=== PATIENT | female | born 1940 | race Caucasian/White ===

== ENCOUNTER 2016-09-08 11:48 | Inpatient (IN) | payer MEDICARE, OTHER ==
[2016-09-01 17:20] LABS: HEMATOCRIT 48.9 % (36.0-48.0); HEMOGLOBIN 16.6 g/dL (12.0-16.0)
[2016-09-01 17:33] LABS: BUN (BLOOD UREA NITROGEN) 13 MG/DL (6-23); CALCIUM, SERUM 8.7 MG/DL (8.5-10.4); CREATININE 0.94 MG/DL (0.55-1.02); GFR AFRICAN AMERICAN 69 ML/MIN (>=60); GFR NON AFRICAN AMERICAN 60 ML/MIN (>=60); GLUCOSE, SERUM 104 MG/DL (60-99); SODIUM, SERUM 136 MMOL/L (135-148)
[2016-09-01 17:38] LABS: CHLORIDE, SERUM 93 MMOL/L (96-112); CO2 (CARBON DIOXIDE) 31 MMOL/L (24-34)
--- NOTE | ~2016-09-08 | PREOPHP ---
PreOp History and Physical [facility] [address] [place]. [address] NAME: BETTY SHELTON : 42 STATUS : ADM IN PAT#: [id number] AGE: 76 ADM/REG DATE : 09/08/16 MR#: [id number] REPORT SERV DATE: 09/08/16 DICTATED BY: LENARD CEBALLOS DATE: 09/08/16 REPORT STATUS : Draft TRANSCRIBED BY: MODRohan DATE: 09/08/16 CHIEF COMPLAINT: Back pain and left hip and leg pain. HISTORY OF PRESENT ILLNESS: A 76-year-old female with prolonged back pain, left hip and leg pain, and has a diagnosis of grade 1 spondylolisthesis at L4-5. There is some spinal stenosis as well. She has predominantly left leg pain and back pain. She has tried usual conservative care for several months and has failed. Due to the above diagnosis and further conservative care, she was brought to the surgery for a left L4-5 hemilaminectomy foraminotomy, facetectomy, transforaminal diskectomy, anterior interbody cage insertion, posterolateral interbody fusion with local bone graft and allograft, and posterior percutaneous instrumentation. Prior to surgery, risks, benefits, alternatives, and expectations explained. Consent form has been signed. Please also note because of the complexity of surgery and the need to identify the correct level of surgery intraoperatively as well as the desire to carry out the safest and most precise dissection with least amount of radiation exposure, I felt that intraoperative navigation is mandatory. PAST MEDICAL HISTORY: Has included anxiety disorder, osteoarthritis, breast cancer, hypertension, hypercholesterolemia, hypothyroidism, recurrent UTIs, and chronic nephritis. She has also had sleep apnea. PAST SURGICAL HISTORY: Includes abdominal hysterectomy, right-sided mastectomy, cystectomy of the right hand, tonsillectomy, adenoidectomy, and cataract excision with bilateral lens implants. CURRENT MEDICATIONS: Dilaudid 2 mg q.6h. p.r.n. for pain; Synthroid; Ativan; lovastatin; and Diovan. ALLERGIES: CODEINE, PENICILLIN, SULFA, AND TRAMADOL. SOCIAL HISTORY: She is , . Does not use any tobacco or alcohol. FAMILY HISTORY: Father had hypertension and coronary artery disease and mother had renal failure and Alzheimer's disease. REVIEW OF SYSTEMS: Otherwise negative. PHYSICAL EXAMINATION: VITAL SIGNS: She is 4 feet 11 inches, 172 pounds, BMI is 34.7. GENERAL: She is alert, cooperative, well oriented. Ambulates independently. HEENT: Exam is grossly normal. LUNGS: Clear to auscultation. HEART: Rate is regular and rhythmic. ABDOMEN: Soft with good bowel sounds. No peritoneal signs noted. MUSCULOSKELETAL: The spine itself has no gross deformities. She has very limited range of PreOp History and Physical [address] [address] NAME: BETTY SHELTON : 42 STATUS : ADM IN PAT#: [id number] AGE: 76 ADM/REG DATE : 09/08/16 MR#: [id number] REPORT SERV DATE: 09/08/16 DICTATED BY: LENARD CEBALLOS DATE: 09/08/16 REPORT STATUS : Draft TRANSCRIBED BY: KAREN DATE: 09/08/16 motion due to pain. She has worse pain with extension versus flexion. She cannot heel walk or toe walk due to pain in the back. Straight leg raising signs passively are negative. Her motor strengths are 5/5. Her patellar reflexes 1/4. Achilles reflexes are absent. There is no sensory deficit in either lower extremities. There is no ankle clonus. Babinski sign is normal. No evidence of myelopathy found. Orthopedically, she has no pain with moving hips, knees, or ankles. There are good pulses in all four extremities. No abnormal skin lesions are found. ASSESSMENT AND RECOMMENDATIONS: As listed above. /EMILYL Lenard Ceballos D.O. / [id number] CC: Ai Lofton Jr., M.D.
--- NOTE | ~2016-09-08 | OP ---
Record Of Operation [facility] [address] [place]. [address] NAME: BETTY SHELTON : 42 STATUS : ADM IN PAT#: [id number] AGE: 76 ADM/REG DATE : 09/08/16 MR#: [id number] REPORT SERV DATE: 09/08/16 DICTATED BY: LENARD CEBALLOS DATE: 09/08/16 REPORT STATUS : Draft TRANSCRIBED BY: MODL DATE: 09/08/16 DATE OF PROCEDURE: PREOPERATIVE DIAGNOSIS: Grade 1/grade 2 spondylolisthesis with spinal stenosis L4-5. POSTOPERATIVE DIAGNOSIS: Grade 1/grade 2 spondylolisthesis with spinal stenosis L4-5. PROCEDURE: 1. Microscopic and navigation assisted surgery. 2. Left L4-5 hemilaminectomy, foraminotomy, facetectomy, transforaminal diskectomy, anterior interbody Capstone cage insertion, Posterolateral interbody fusion with local bone graft allograft. 3. Posterior percutaneous Voyager instrumentation, L4-5. SURGEON: Lenard Ceballos D.O. AUDIO OPERATOR: Amy Barroso. ANESTHESIA: General. ESTIMATED BLOOD LOSS: 75 mL. INDICATION FOR SURGERY: Risks were explained. They are listed in last office note as well in history and physical. See that for detail. OPERATION: Antibiotic prophylaxis given. Neurophysiology monitoring leads inserted. The patient was brought to the operative suite where general anesthetic including endotracheal intubation was administered. Mancilla catheter was placed with sterile technique. The patient was placed prone on a Serafin spine frame. Bony prominences were carefully padded. Thoracolumbar spine was scrubbed with Hibiclens solution. DuraPrep was painted. Sterile drapes applied. A small stab wound was carried out a right posterior superior iliac spine. A percutaneous pin with navigational frame attached was inserted in PSIS. Intraoperative CT scan with O- arm obtained. CT information was used to register the navigational system. With navigational assistance, I identified the L4-5 level. On the left side, just lateral to the facet joint, a 3 cm skin incision was carried out. A blunt navigated probe was placed through the fascia muscle and docked over the facet joint. Muscle dilators were inserted followed by placement of a tubular retractor attached to an arm mount on table. The microscope was sterilely draped and used throughout the remainder of the procedure. With navigational assistance, I identified the top of the pedicle of L5 and the inferior pedicle of L4. I dissected from lateral to medial using 2 mm and 3 mm rahul bur as well as a cutting bur, and 2 mm and 3 mm Kerrison rongeurs. I removed the superior articular process down to the top of the pedicle of L5. The pars interarticularis, the lamina, and Record Of Operation [facility] [address] [place]. [address] NAME: BETTY SHELTON : 42 STATUS : ADM IN PAT#: [id number] AGE: 76 ADM/REG DATE : 09/08/16 MR#: [id number] REPORT SERV DATE: 09/08/16 DICTATED BY: LENARD CEBALLOS DATE: 09/08/16 REPORT STATUS : Draft TRANSCRIBED BY: KAREN DATE: 09/08/16 the inferior articular process of L4 completely removed. The local bone graft was morcellized and used as a part of the fusion. The medial portion of facet joint debrided with rongeur as it was causing lateral recess stenosis. There was severe ligamentum flavum hypertrophy causing central canal and lateral recess stenosis. The exiting L4 nerve root was markedly compressed by disk material behind the body of L4 that had rolled out as a part of the spondylolisthesis. A transforaminal diskectomy was carried out with curettes, rongeurs, and disk sergey, completely decompressing the exiting L4 nerve root. Even the central canal on the right side as well as the lateral recess in right side were debrided through unilateral incision, bilateral decompression was completed with the rongeurs and rahul burs. After the transforaminal diskectomy was completed, the wound was irrigated, the endplate cartilage was completely removed. The trial was carried out. We determined the appropriate size cage would be a 10 x 28 mm cage. The interbody space was filled with local bone graft and allograft. The cage was then inserted through the middle of the graft into the midline against the anterior longitudinal ligament. Additional posterolateral interbody fusion grafting material was inserted. The retractor was removed on the left side. I carried out a 3 cm skin incision on the right side to match that on the left. Again, a blunt navigated probe placed through the fascia and muscle and a percutaneous Voyager pedicle tap and screw motor tune up specialist were used to tap the pedicles of L4 and L5, left and right side. The polyaxial Voyager screws with screw extenders were inserted at L4-5 bilateral. A 35 mm contoured lordotic dumbbell stacy was placed through the screw extenders, reduced into the tulip of the pedicle screw. The set screws inserted and tightened with a torque wrench providing rigid stability. The screw extenders were removed. Intraoperative CT scan with O-arm repeated showing excellent position of all implants. The fascial layer closed with interrupted #1 Vicryl suture. The subcutaneous tissue closed with 2-0 Vicryl suture, 2-0 vertical mattress nylon suture used for skin closure. Sterile dressings were applied. The patient returned to supine position, awakened, extubated, taken to recovery room in satisfactory condition having tolerated procedure well. Sponge, needle, and instrument counts were correct. No intraoperative complications noted. PALOMO/KAREN Lenard Ceballos D.O. / [id number] CC: Lenard Ceballos D.O.
--- NOTE | ~2016-09-08 | DS ---
Discharge Summary [facility] [address] [place]. [address] NAME: BETTY SHELTON : 44 STATUS : DIS IN PAT#: [id number] AGE: 76 ADM/REG DATE : 09/08/16 MR#: [id number] REPORT SERV DATE: 09/20/16 DICTATED BY: LENARD CEBALLOS DATE: 09/19/16 REPORT STATUS : Draft TRANSCRIBED BY: MODRohan DATE: 09/19/16 Data Collection from hospitalization DISCHARGE DIAGNOSES: 1. Grade 1/grade 2 spondylolisthesis with spinal stenosis L4-L5. 2. Hypertension. 3. Sleep apnea. 4. Anxiety disorder. 5. Osteoarthritis. 6. History of breast cancer. 7. Hypercholesterolemia. 8. Hypothyroidism. 9. Chronic nephritis. CONSULTATIONS: None. PROCEDURES PERFORMED: Microscopic and navigation-assisted surgery; left L4-L5 hemilaminectomy, foraminotomy, facetectomy, transforaminal diskectomy, anterior interbody Capstone cage insertion, posterolateral interbody fusion with local bone graft allograft, posterior percutaneous Voyager instrumentation at L4-L5 on 09/08/2016. PATHOLOGY: Bone and tissue, lumbar spine - fragments of hyaline cartilage with degenerative changes. Dense fibrous connective tissue, skeletal muscle, and bone present. MEDICATIONS: Dramamine 50 mg every six hours as needed, Dilaudid 2 mg every six hours as needed, levothyroxine 88 mcg daily, Ativan 0.5 mg at bedtime, Robaxin 500 mg every eight hours, Mirapex 0.125 mg three times a day, Phenergan 25 mg every six hours as needed, Crestor 40 mg daily, and valsartan/hydrochlorothiazide one tablet every morning as instructed. CONDITION AT DISCHARGE: Stable. DISPOSITION: The patient was discharged home on a regular diet with activities as instructed. She would follow up with Christiana Hernandez on 09/22/2016. HOSPITAL COURSE: This is a 76-year-old female with prolonged back pain, left hip and leg pain. She has a diagnosis of grade 1 spondylolisthesis at L4-5. There was some spinal stenosis as well. She has predominantly left leg pain and back pain. She had tried usual conservative care for several months and has failed. Treatment options were discussed and it was elected to proceed with surgical intervention. She was admitted to the hospital for further evaluation and treatment. Upon admission, she was taken to the operating room where she underwent the above-mentioned procedure. She tolerated this well, and there were no complications. On postop day #1, she was doing well. She had no complaints of left leg pain. On postop day #2, she did complain of some nausea and pain. She had some vomiting. She was not participating with Physical Therapy due to the nausea. Her left leg pain had resolved. NAILA hose were in place. Mirapex was continued. Her blood pressure was controlled. On 09/11/2016, she was doing Discharge Summary [place] [id number] [facility] [place]. [address] NAME: BETTY SHELTON : 42 STATUS : DIS IN PAT#: [id number] AGE: 76 ADM/REG DATE : 09/08/16 MR#: [id number] REPORT SERV DATE: 09/20/16 DICTATED BY: LENARD CEBALLOS DATE: 09/19/16 REPORT STATUS : Draft TRANSCRIBED BY: KAREN DATE: 09/19/16 okay except for the nausea and vomiting. Over the next couple of days, she continued to progress. She could not transfer independently. She was requesting one more day of physical therapy. Discharge planning was performed. On 09/13/2016, she was transferring okay. She did have a bowel movement. Discharge instructions were given. Due to her improved and stable condition, she was discharged home with the above-stated instructions. Information collected by: Bronwyn Cervantes I submit the above information as my discharge summary. TREY/KAREN Lenard Ceballos D.O. / [id number] CC: Ai Lofton Jr., M.D.
[~2016-09-08 11:48] MED LIST: ALLEGRA180 PO; ATV.5 PO; CRESTOR20 MG PO; CRESTOR40 MG PO; DIL2TAB PO; DIMENHY50I PO; EXFORGE1 TAB PO; LEVOTHYROXIN100 MCG PO; LEVOTHYROXIN88 MCG PO; MIRAPEX125 PO; TYLENOL ARTH650 MG PO; VALSARTAN/HCTZ PO
[2016-09-08 19:05] LABS: BASOPHILS 0.2 %; BASOPHILS ABSOLUTE 0.02 10/3/uL (0.0-0.16); EOSINOPHILS 0.1 %; EOSINOPHILS ABSOLUTE 0.01 10/3/uL (0.0-0.53); HEMOGLOBIN 13.7 g/dL (12.0-16.0); IMMATURE GRANULOCYTES 0.6 %; IMMATURE GRANULOCYTES ABSOLUTE 0.05 10/3/uL (0.0-0.11); LYMPHOCYTES 7.4 %; LYMPHOCYTES ABSOLUTE 0.62 10/3/uL (0.67-4.30); MEAN CORPUS HGB CONC 33.6 g/dL (32.0-36.0); MEAN CORPUSCULAR HEMOGLOB 28.2 pg (26.0-34.0); MONOCYTES 1.9 %; MONOCYTES ABSOLUTE 0.16 10/3/uL (0.21-1.20); NEUTROPHILS 89.8 %; NEUTROPHILS ABSOLUTE 7.48 10/3/uL (2.02-8.40); PLATELET COUNT 232 10/3/uL (150-400); RBC DISTRIBUTION WIDTH 13.8 % (12.0-16.0); RED CELL COUNT 4.86 10/6/uL (4.0-5.6); WHITE BLOOD CELLS 8.3 10/3/uL (4.5-10.5)
[2016-09-08 19:06] LABS: HEMATOCRIT 40.8 % (36.0-48.0); MANUAL DIFF NO %
[2016-09-08 19:15] LABS: BUN (BLOOD UREA NITROGEN) 10 MG/DL (6-23); CHLORIDE, SERUM 103 MMOL/L (96-112); CO2 (CARBON DIOXIDE) 27 MMOL/L (24-34); GFR AFRICAN AMERICAN 73 ML/MIN (>=60); GFR NON AFRICAN AMERICAN 63 ML/MIN (>=60); GLUCOSE, SERUM 145 MG/DL (60-99); POTASSIUM, SERUM 3.5 MMOL/L (3.5-5.3); SODIUM, SERUM 139 MMOL/L (135-148)
[2016-09-09 04:59] LABS: BASOPHILS 0.1 %; BASOPHILS ABSOLUTE 0.01 10/3/uL (0.0-0.16); EOSINOPHILS 0 %; HEMATOCRIT 42.7 % (36.0-48.0); HEMOGLOBIN 14.4 g/dL (12.0-16.0); IMMATURE GRANULOCYTES 0.2 %; IMMATURE GRANULOCYTES ABSOLUTE 0.03 10/3/uL (0.0-0.11); LYMPHOCYTES 6.8 %; LYMPHOCYTES ABSOLUTE 0.88 10/3/uL (0.67-4.30); MEAN CORPUS HGB CONC 33.7 g/dL (32.0-36.0); MEAN CORPUSCULAR HEMOGLOB 28.5 pg (26.0-34.0); MEAN CORPUSCULAR VOLUME 84.6 fL (80-100); MEAN PLATELET VOLUME 10.5 fL (9.2-13.0); MONOCYTES 4.8 %; MONOCYTES ABSOLUTE 0.63 10/3/uL (0.21-1.20); NEUTROPHILS 88.1 %; NEUTROPHILS ABSOLUTE 11.45 10/3/uL (2.02-8.40); PLATELET COUNT 211 10/3/uL (150-400); RBC DISTRIBUTION WIDTH 13.8 % (12.0-16.0); RED CELL COUNT 5.05 10/6/uL (4.0-5.6)
[2016-09-09 05:01] LABS: MANUAL DIFF NO %
[2016-09-09 05:21] LABS: BUN (BLOOD UREA NITROGEN) 13 MG/DL (6-23); CALCIUM, SERUM 9.2 MG/DL (8.5-10.4); CHLORIDE, SERUM 113 MMOL/L (96-112); CO2 (CARBON DIOXIDE) 17 MMOL/L (24-34); CREATININE 0.84 MG/DL (0.55-1.02); GFR AFRICAN AMERICAN 79 ML/MIN (>=60); GFR NON AFRICAN AMERICAN 68 ML/MIN (>=60); GLUCOSE, SERUM 92 MG/DL (60-99); SODIUM, SERUM 143 MMOL/L (135-148)
[2016-09-09 05:22] LABS: POTASSIUM, SERUM 5.5 MMOL/L (3.5-5.3)
[2016-09-10 05:07] LABS: HEMATOCRIT 42.3 % (36.0-48.0); HEMOGLOBIN 14.1 g/dL (12.0-16.0)
[2016-09-10 05:20] LABS: BUN (BLOOD UREA NITROGEN) 10 MG/DL (6-23); CALCIUM, SERUM 8.6 MG/DL (8.5-10.4); CREATININE 0.72 MG/DL (0.55-1.02); GFR AFRICAN AMERICAN 96 ML/MIN (>=60); GFR NON AFRICAN AMERICAN 83 ML/MIN (>=60); SODIUM, SERUM 140 MMOL/L (135-148)
[2016-09-10 05:21] LABS: CHLORIDE, SERUM 99 MMOL/L (96-112); CO2 (CARBON DIOXIDE) 30 MMOL/L (24-34); GLUCOSE, SERUM 123 MG/DL (60-99); POTASSIUM, SERUM 3.6 MMOL/L (3.5-5.3)
[2016-09-11 04:52] LABS: BASOPHILS 0.2 %; BASOPHILS ABSOLUTE 0.02 10/3/uL (0.0-0.16); EOSINOPHILS 0.5 %; EOSINOPHILS ABSOLUTE 0.05 10/3/uL (0.0-0.53); HEMATOCRIT 41.2 % (36.0-48.0); HEMOGLOBIN 13.8 g/dL (12.0-16.0); IMMATURE GRANULOCYTES 0.1 %; IMMATURE GRANULOCYTES ABSOLUTE 0.01 10/3/uL (0.0-0.11); LYMPHOCYTES 19.8 %; LYMPHOCYTES ABSOLUTE 2.06 10/3/uL (0.67-4.30); MEAN CORPUS HGB CONC 33.5 g/dL (32.0-36.0); MEAN CORPUSCULAR HEMOGLOB 28.5 pg (26.0-34.0); MEAN CORPUSCULAR VOLUME 85.1 fL (80-100); MEAN PLATELET VOLUME 10.3 fL (9.2-13.0); MONOCYTES 10.2 %; MONOCYTES ABSOLUTE 1.06 10/3/uL (0.21-1.20); NEUTROPHILS 69.2 %; NEUTROPHILS ABSOLUTE 7.22 10/3/uL (2.02-8.40); PLATELET COUNT 234 10/3/uL (150-400); RBC DISTRIBUTION WIDTH 14.2 % (12.0-16.0); RED CELL COUNT 4.84 10/6/uL (4.0-5.6); WHITE BLOOD CELLS 10.4 10/3/uL (4.5-10.5)
[2016-09-11 04:53] LABS: MANUAL DIFF NO %
[2016-09-13] MEDS ORDERED: DIL2TAB PO (09:40)
[2016-09-13] MEDS ORDERED: METHOC500B PO (09:40)
[2016-09-13] MEDS ORDERED: PR25 PO (09:41)
== END 2016-09-13 14:34 | disposition home or self-care (01) | DRG 460 ==
LOC: SDC/OF 11:48 → 3SO 20:46
PROVIDERS: Nurse Practitioner; Orthopaedic Surgery Orthopaedic Surgery of the Spine
PROC: 0SG00AJ Fusion of Lumbar Vertebral Joint with Interbody Fusion Device, Posterior Approach, Anterior Column, Open Approach (ICD-10-PCS; principal; 2016-09-08 13:45)
PROC: 0ST20ZZ Resection of Lumbar Vertebral Disc, Open Approach (ICD-10-PCS; 2016-09-08 13:45)
PROC: 4A11X4G Monitoring of Peripheral Nervous Electrical Activity, Intraoperative, External Approach (ICD-10-PCS; 2016-09-08 13:45)
DX: M51.36 Other intervertebral disc degeneration, lumbar region (principal); I10 Essential (primary) hypertension; E03.9 Hypothyroidism, unspecified; E78.5 Hyperlipidemia, unspecified; F32.9 Major depressive disorder, single episode, unspecified
CPT/HCPCS: 36415; 74000; 80048; 82962; 84132; 85014; 85018; 85025; 87641; 88304; 88311; 93005; 97110-GP; 97116-GP; 97161-GP; 97530-GP; A9270-GY; C1713; C1729; J0690; J1644; J2250; J2370; J2405; J2710; J3010; J3370; J3480